=== PATIENT | male | born 1980 ===

== ENCOUNTER 2022-09-15 05:31 | Day surgery (SDC) | payer OTHER | END 2022-09-15 10:00 | disposition home or self-care (01) | LOC: AMB-ENDOS 05:31 | PROVIDERS: ATTEND Surgery | DX: K29.50 Unspecified chronic gastritis without bleeding (principal); Z20.822 Contact with and (suspected) exposure to COVID-19; K44.9 Diaphragmatic hernia without obstruction or gangrene; I10 Essential (primary) hypertension ==